=== PATIENT | female | born 1945 | race Caucasian/White ===

== ENCOUNTER → 2016-06-28 | Outpatient (CLI) | payer MEDICARE ==
[~2016-06-28] MED LIST: ALBU8.5H3 INH; ASPI-496 PO; DILT120C9 PO; DRON400T PO; FLUT1DIS3 INH; FURO40TA6 PO; IPRA3AMP NEB; LINA290C PO; MONT10TA6 PO; SIMV40TA3 PO
== END | disposition home or self-care (01) ==
LOC: CFH 12:01
PROVIDERS: ATTEND Family Medicine
DX: Z13.820 Encounter for screening for osteoporosis (principal); M81.0 Age-related osteoporosis without current pathological fracture
CPT/HCPCS: 77080

== ENCOUNTER → 2017-09-28 | Outpatient (CLI) | payer MEDICARE ==
[~2017-09-28] MED LIST changes: -ALBU8.5H3 INH; +ALBU8.5H8 INH; +APIX5TAB PO
== END | disposition home or self-care (01) ==
LOC: RAD 12:34
PROVIDERS: ATTEND Nurse Practitioner Family
DX: S72.402A Unspecified fracture of lower end of left femur, initial encounter for closed fracture (principal); S83.242A Other tear of medial meniscus, current injury, left knee, initial encounter; M25.462 Effusion, left knee; M17.12 Unilateral primary osteoarthritis, left knee; M94.262 Chondromalacia, left knee; M71.22 Synovial cyst of popliteal space [Baker], left knee; M86.8X8 Other osteomyelitis, other site; X58.XXXA Exposure to other specified factors, initial encounter; Y93.89 Activity, other specified; Y92.89 Other specified places as the place of occurrence of the external cause; Y99.8 Other external cause status; L03.818 Cellulitis of other sites

== ENCOUNTER → 2018-06-29 | Outpatient (CLI) | payer MEDICARE ==
[~2018-06-29] MED LIST changes: -IPRA3AMP NEB; +IPRA3AMP30 NEB
== END | disposition home or self-care (01) ==
LOC: CVU 09:54
PROVIDERS: ATTEND Internal Medicine Cardiovascular Disease
DX: Z12.31 Encounter for screening mammogram for malignant neoplasm of breast (principal); I08.0 Rheumatic disorders of both mitral and aortic valves; I10 Essential (primary) hypertension; E78.5 Hyperlipidemia, unspecified; Z95.2 Presence of prosthetic heart valve
CPT/HCPCS: 77063; 93306; 77067

== ENCOUNTER → 2018-07-16 | Outpatient (CLI) | payer MEDICARE | END | disposition home or self-care (01) | LOC: RAD 11:53 | PROVIDERS: ATTEND Family Medicine | DX: M48.02 Spinal stenosis, cervical region (principal); M47.812 Spondylosis without myelopathy or radiculopathy, cervical region; M25.78 Osteophyte, vertebrae | CPT/HCPCS: 72050 ==

== ENCOUNTER 2018-10-31 15:09 | Outpatient (CLI) | payer MEDICARE | END 2018-10-31 23:59 | disposition home or self-care (01) | LOC: CFH 15:09 | PROVIDERS: ATTEND Family Medicine | DX: M79.609 Pain in unspecified limb (principal); R60.0 Localized edema | CPT/HCPCS: 93970 ==

== ENCOUNTER 2018-11-02 15:08 | Emergency (ER) | payer MEDICARE ==
[~2018-11-02] VITALS: Ht 160 cm; Wt 145.0 kg
[2018-11-02 17:41] VITALS: BP 145/60
== END 2018-11-02 17:44 | disposition home or self-care (01) ==
LOC: ED 15:26
DX: M25.561 Pain in right knee (principal); M79.651 Pain in right thigh; E66.01 Morbid (severe) obesity due to excess calories; Z68.43 Body mass index [BMI] 50.0-59.9, adult
CPT/HCPCS: 36415; 80048; 82040; 82550; 83735; 85025; 99284

== ENCOUNTER → 2019-10-03 | Outpatient (CLI) | payer MEDICARE ==
[~2019-10-03] MED LIST changes: +DILT120C48 PO; -DILT120C9 PO; +SIMV40TA20 PO; -SIMV40TA3 PO
== END | disposition home or self-care (01) ==
LOC: CVU 10:45
PROVIDERS: ATTEND Internal Medicine Cardiovascular Disease
DX: I08.1 Rheumatic disorders of both mitral and tricuspid valves (principal); I11.9 Hypertensive heart disease without heart failure; Z95.0 Presence of cardiac pacemaker; Z79.01 Long term (current) use of anticoagulants
CPT/HCPCS: 93306

== ENCOUNTER → 2020-02-03 | Outpatient (CLI) | payer MEDICARE | END | disposition home or self-care (01) | LOC: CFH 11:02 | PROVIDERS: ATTEND Family Medicine | DX: R10.11 Right upper quadrant pain (principal) | CPT/HCPCS: 76705 ==

== ENCOUNTER 2020-09-08 11:07 | Outpatient (CLI) | payer MEDICARE ==
[~2020-09-08 11:07] MED LIST changes: -DRON400T PO; +DRON400T6 PO
[2020-09-08 11:50] LABS: ALBUMIN 3.2 g/dL (3.4-5.0); BILIRUBIN, DIRECT 0.1 mg/dL (0.1-0.2)
[2020-09-08 11:53] LABS: BILIRUBIN,INDIRECT 0.3 mg/dL (0.0-2.0); BILIRUBIN,TOTAL 0.4 mg/dL (0.2-1.0); TOTAL PROTEIN 6.8 g/dL (6.4-8.2)
[2020-09-10 15:47] LABS: ANA SCREEN NEGATIVE (Negative)
== END 2020-09-08 23:59 | disposition home or self-care (01) ==
LOC: LAB 11:07
PROVIDERS: ATTEND Nurse Practitioner Family
DX: R74.8 Abnormal levels of other serum enzymes (principal); M25.562 Pain in left knee; G89.29 Other chronic pain; R10.11 Right upper quadrant pain; M25.561 Pain in right knee; K59.00 Constipation, unspecified; R39.9 Unspecified symptoms and signs involving the genitourinary system; R06.2 Wheezing
CPT/HCPCS: 36415; 80076; 83516; 86038; 86376; 86704; 86708; 86803; 87340

== ENCOUNTER 2020-11-19 10:18 | Outpatient (CLI) | payer MEDICARE | END 2020-11-19 23:59 | disposition home or self-care (01) | LOC: CVU 10:18 | PROVIDERS: ATTEND Internal Medicine Cardiovascular Disease | DX: I34.8 Other nonrheumatic mitral valve disorders (principal); I11.9 Hypertensive heart disease without heart failure | CPT/HCPCS: 93306 ==